=== PATIENT | female | born 1995 | race Hispanic/Latino ===

== ENCOUNTER 2023-06-28 13:10 | Observation (INO) | payer MEDICAID, SELFPAY ==
[2023-06-28 13:58] VITALS: BMI 28.0
[2023-06-28 14:29] VITALS: BP 105/62; PULSE 84
[2023-06-28 14:30] VITALS: BP 97/56; PULSE 71
--- NOTE | 2023-06-28 14:37 | PC.NURSE ---
called Dr. Vazquez reported pt visit for fall. reactive tracing with no contractions. discharge order received
[2023-06-28 14:58] VITALS: BP 105/62; PULSE 90
--- NOTE | 2023-07-09 05:36 | PM.OBTRLD ---
OB - Triage/Final Diagnosis Visit Information Comments/Additional reasons for admission: I have assessed the risk for this patient, Katarina Randolph, and determined that she would benefit from observation care. Final Diagnosis (1) Fall: Code(s): W19.XXXA - Unspecified fall, initial encounter Status: Acute
== END 2023-06-28 14:52 | disposition home or self-care (01) ==
PROVIDERS: Admitting Provider Obstetrics & Gynecology; Visit Provider Obstetrics & Gynecology
DX: Z04.3 Encounter for examination and observation following other accident (principal); W19.XXXA Unspecified fall, initial encounter; Z3A.28 28 weeks gestation of pregnancy
CPT/HCPCS: 59025; G0378; G0379